=== PATIENT | female | born 1970 | race Hispanic/Latino ===

== ENCOUNTER 2016-04-20 14:53 | Emergency (ER) | payer OTHER ==
[~2016-04-20] VITALS: Ht 170.2 cm; Wt 74.5 kg
[~2016-04-20 14:53] MED LIST: LEVO200T6 PO; NPR500T PO
[2016-04-20 15:11] VITALS: BP 156/89; PULSE 86; RESP 18; O2SAT 97
--- NOTE | 2016-04-20 17:28 | ED.REPORT ---
HPI-Hand Prob/Inj Date of Service Apr 20, 2016 ED Provider: Doc,Ed MD History of Present Illness: 46yo female sustained a volar R thumb laceration this afternoon a work while cleaning dishes. Td UTD. No other injuries. FROM of thumb, no radiation of pain. Nursing Notes Stated Complaint: R/HAND LACERATION Chief Complaint: Laceration Nursing Notes Reviewed: Yes Allergies: Coded Allergies: No Known Allergies (Verified , 02/09/15) Scheduled Levothyroxine (Levothyroxine) 200 Mcg Tablet 200 MCG PO DAILY Scheduled PRN Naproxen (Naproxen) 500 Mg Tab 500 MG PO BID PRN PRN For Pain General Time Seen by Provider: 17:28 Chief Complaint Finger injury right Hx Obtained From: Patient Arrived By: Walk-in Onset Occurred: 1 - 4 hours ago Symptom Duration: Since onset Caused by: Knife wound Location: Right Hand: : Finger... (Thumb): Volar surface Radiation: Does not radiate Severity: Current: Mild Severity: Maximum: Mild Immunizations: Tetanus up to date Recent Healthcare: No recent doctor visit Similar Sx Previous: No Past Medical History Past Medical History Thyroid issue (last checked in 04/2014) Past Surgical History Thyroidectomy Reports: Appendectomy Family History Mother and Grandmother both had early menopause, in their 30s Smoking History Never Smoker Social History Alcohol Use: Denies alcohol use Drug Use: Denies drug use Other Social History: , Local resident Occupation Pt works 2 jobs for the past 4 months Ambulatory Status Independent Review of Systems Constitutional: Denies: Chills, Fever Musculoskeletal: Reports: Extremity pain Respiratory: Denies: Shortness of breath Cardiovascular: Denies: Chest pain GI: Denies: Abdominal pain Physical Exam Initial Vital Signs Vital Signs (First) Date Time Temp Pulse Resp B/P Pulse Ox O2 Delivery O2 Flow Rate FiO2 04/20/16 15:11 37.0 86 18 156/89 97 Initial VS: Reviewed Trauma / Burn / Environmental: Positive: Laceration 1.5cm laceration volar R thumb at IP joint, FROM, no obvious nerve/vessel/tendon injury. General/Constitutional: Awake, Alert, No acute distress, Not toxic appearing Respiratory / Chest: Breath sounds NL, Breath sounds = bilat, No respiratory distress Cardiovascular: Heart rate NL, Regular rhythm, Heart sounds NL Abdomen: Soft Procedures Laceration Management Procedure Performed by: Allied health pract Consent / Setup / Site Prep: Consent from patient Location of Wound: R volar thumb Wound Length: 1 cm (.5) Digital Block: Yes Digit Involved: Thumb right Wound Preparation: [place]urclens Repair Skin: ___ O (4-) # Sutures - Skin: 3 Suture Technique: Simple Post-Procedure / Complications: Antibiotic oint applied, Dressing applied, Tolerated procedure well, Patient stable Re-Eval/Medical Decision Med Decision/Clinical Course Straightforward R thumb laceration repair. Pt.should do well with home wound care, suture removal 04/30/16. Counseled Regarding: Diagnosis, Need for follow-up, When/why to return to ED Discharge & Departure Shift Change Sign-Out Response to Therapy: Improved Primary Impression: Laceration of right thumb Encounter type: initial encounter Qualified Code: S61.011A - Laceration without foreign body of right thumb without damage to nail, initial encounter Disposition: Home Patient Instructions: Acute Wound Care (ED) Additional Instructions: Keep clean and dry, but daily soap and water is ok. Splint during day for 5 days , then can stop wearing splint. Apply bacitracin daily. Sutures out 04/30/16. Return to ER if any problems Referrals: Radhames Schwab MD (PCP) Other 04/30/16 suture removal EDSupervising Provider for APC: Chu Howell MD, Christopher R PAC Apr 20, 2016 17:28
== END 2016-04-20 18:34 | disposition home or self-care (01) ==
LOC: SED 14:53
DX: S61.011A Laceration without foreign body of right thumb without damage to nail, initial encounter (principal); W26.0XXA Contact with knife, initial encounter; Y93.G1 Activity, food preparation and clean up; Y92.69 Other specified industrial and construction area as the place of occurrence of the external cause; Y99.0 Civilian activity done for income or pay; E07.9 Disorder of thyroid, unspecified